=== PATIENT | female | born 1955 | race Caucasian/White ===

== ENCOUNTER → 2021-11-15 | Outpatient (CLI) | payer MEDICARE, OTHER | END | disposition home or self-care (01) | LOC: RADPV 13:18 | PROVIDERS: ATTEND Internal Medicine | DX: Z13.820 Encounter for screening for osteoporosis (principal); G80.0 Spastic quadriplegic cerebral palsy; C67.5 Malignant neoplasm of bladder neck; M81.0 Age-related osteoporosis without current pathological fracture | CPT/HCPCS: 77080 ==